=== PATIENT | male | born 1975 | race African-American/Black ===

== ENCOUNTER → 2018-01-16 | Outpatient (CLI) | payer OTHER ==
[~2018-01-16] MED LIST: DIAZEPAM 10 MG TABLET.; FUROSEMIDE 40 MG/4 ML VIAL.; IOHEXOL 350 MG/ML 100 ML VIAL.; IOHEXOL 350 MG/ML 50 ML VIAL.; LIDOCAINE 1% Multi-Dose 50 ML VIAL.; MIDAZOLAM HCL/PF 2 MG/2 ML VIAL.; fentaNYL PF VIAL 100 MCG/2 ML VIAL; hydrALAZINE 20 MG/ML VIAL.
== END | disposition home or self-care (01) ==
LOC: PCVCIMAG 10:28
DX: I42.9 Cardiomyopathy, unspecified (principal); I11.0 Hypertensive heart disease with heart failure; I50.9 Heart failure, unspecified; E11.9 Type 2 diabetes mellitus without complications; Z94.1 Heart transplant status
CPT/HCPCS: 75625; 93460; 93567; 99152; 99153; C1751; C1760; C1769; C1894; J0360; J1644; J1940; J2250; J3010; Q9967

== ENCOUNTER → 2018-12-18 | Outpatient (CLI) | payer OTHER | END | disposition home or self-care (01) | LOC: PCVCCLINIC 15:37 | PROVIDERS: ATTEND Internal Medicine Cardiovascular Disease | DX: I42.8 Other cardiomyopathies (principal); I11.0 Hypertensive heart disease with heart failure; I50.42 Chronic combined systolic (congestive) and diastolic (congestive) heart failure; E11.9 Type 2 diabetes mellitus without complications; G47.33 Obstructive sleep apnea (adult) (pediatric); Z79.82 Long term (current) use of aspirin | CPT/HCPCS: 36415; 80061; 93005; G0463 ==

== ENCOUNTER → 2018-12-18 | Outpatient (CLI) | payer OTHER ==
--- NOTE | 2018-12-18 16:49 | PCVCIMAG ---
APPROVED REPORT Study performed: 12/18/2018 16:10:45 EXAM: Comprehensive 2D, Doppler, and color-flow Echocardiogram Patient Location: Echo lab Status: routine BSA: 2.85 HR: 81 bpmBP: 154/90 mmHg Rhythm: NSR Other Information Study Quality: Technically Difficult Technically limited study due to body habitus. Risk Factors: Cardiac Risk Factors: HTN Indications Congestive Heart Failure Diabetes Cardiomyopathy 2D Dimensions IVSd: 12.24 (7-11mm) LVDd: 72.82 mm PWd: 13.46 (7-11mm)Ascending Ao: 36.43 (22-36mm) LVDs: 67.05 (25-40mm) Left Atrium: 49.27 (27-40mm) Aortic Root: 36.49 mm LV Single Plane 4CH: 27.86 % LV Single Plane 2CH: 20.28 % Volumes Left Atrial Volume (Systole) Single Plane 4CH: 108.47 mLSingle Plane 2CH: 129.29 mL LA ESV Index: 43.00 mL/m2 Aortic Valve AoV Peak Liam.: 1.33 m/s AO Peak Gr.: 7.09 mmHgLVOT Max P.34 mmHg LVOT Max V: 0.76 m/s Mitral Valve IVRT: 93.43 ms Pulmonary Valve PV Peak Liam.: 0.81 m/sPV Peak Gr.: 2.63 mmHg Pulmonary Vein P Vein S: 0.34 m/sP Vein A: 0.29 m/s P Vein D: 0.69 m/sP Vein A Dur.: 121.1 msec P Vein S/D Ratio: 0.49 Tricuspid Valve TR Peak Liam.: 2.91 m/s TR Peak Gr.: 33.93 mmHg Left Ventricle The left ventricle is normal size. There is normal LV segmental wall motion. Mild concentric left ventricular hypertrophy. Left ventricular ejection fraction is severely decreased globally. LVEF is 25%. Grade II - pseudonormal filling dynamics. Right Ventricle The right ventricle is normal size. The right ventricular systolic function is normal. Atria Left atrium is moderately dilated. The right atrium size is normal. Aortic Valve The aortic valve is normal in structure. No aortic regurgitation is present. There is no aortic valvular stenosis. Mitral Valve The mitral valve is normal in structure. Mild to moderate mitral regurgitation. No evidence of mitral valve stenosis. Tricuspid Valve The tricuspid valve is normal in structure. Mild tricuspid regurgitation with PAP of 41 mmHg. Pulmonic Valve The pulmonary valve is normal in structure. Mild pulmonic regurgitation. Great Vessels The aortic root is normal in size. IVC is normal in size and collapses >50% with inspiration. Pericardium There is no pericardial effusion. There is no pleural effusion. <Conclusion> The left ventricle is normal size. Mild concentric left ventricular hypertrophy. Left ventricular ejection fraction is severely decreased globally. LVEF is 25%. Grade II - pseudonormal filling dynamics. The right ventricular systolic function is normal. Left atrium is moderately dilated. The aortic valve is normal in structure. Mild to moderate mitral regurgitation. Mild tricuspid regurgitation with PAP of 41 mmHg. The aortic root is normal in size. There is no pericardial effusion.
== END | disposition home or self-care (01) ==
LOC: PCVCIMAG 13:00
PROVIDERS: ATTEND Internal Medicine Cardiovascular Disease
DX: I08.8 Other rheumatic multiple valve diseases (principal); I11.0 Hypertensive heart disease with heart failure; I50.42 Chronic combined systolic (congestive) and diastolic (congestive) heart failure; E78.2 Mixed hyperlipidemia
CPT/HCPCS: 93306